=== PATIENT | male | born 1935 | race Caucasian/White ===

== ENCOUNTER 2019-03-01 05:06 | Inpatient (IN) ==
--- NOTE | 2019-03-01 05:34 | PROVIDER DOCUMENTATION ---
HPI-Respiratory General - General Chief Complaint: Shortness of Breath Stated Complaint: PNA/SOB/FEVER Time Seen by Provider: 03/01/19 05:08 Allergies/Adverse Reactions: Patient Allergies Allergy/AdvReac Type Severity Reaction Status Date / Time No Known Allergies Allergy Verified 01/25/18 01:05 Home Medications: Home Medication List Medication Instructions Recorded Confirmed Last Taken Type ASA/Salicylam/Acetaminoph/Caff 81 mg PO DAILY 01/25/18 01/25/18 Unknown History [Pain Relief Tablet] Amlodipine/Atorvastatin [Caduet 5 5 mg PO DAILY 01/25/18 01/25/18 Unknown Histo ry mg-10 mg Tablet] Carbidopa/Levodopa [Sinemet 25/100] 25 mg PO 4XDAY 01/25/18 01/25/18 Unknown History Levothyroxine Sodium [Synthroid] 25 mg PO DAILY 01/25/18 01/25/18 Unknown History Meloxicam [Mobic] 7.5 mg PO DAILY 01/25/18 01/25/18 Unknown History Metoprolol Succinate [Toprol Xl] 100 mg PO DAILY 01/25/18 01/25/18 Unknown History Rivastigmine [Exelon 13.3MG/24Hrs] 13.3 mg TP DAILY 01/25/18 01/25/18 Unknown History Acetaminophen [Tylenol] 650 mg PO Q4H PRN PRN tablet 01/28/18 Unknown Rx Azithromycin [Zithromax] 500 mg PO DAILY #6 tab 01/28/18 Unknown Rx CefDINIR [Omnicef] 300 mg PO DAILY #6 cap 01/28/18 Unknown Rx Desoximetasone 0.25% Cream 1 applicatn TOP BID #30 tube 01/28/18 Unknown Rx [Topicort 0.25% Cream] Irbesartan [Avapro] 150 mg PO DAILY #30 tab 01/28/18 Unknown Rx Lansoprazole Rap.d.r [Prevacid 30 mg PO DAILY tablet 01/28/18 Unknown Rx Solutab] Memantine [Namenda] 10 mg PO BID tablet 01/28/18 Unknown Rx Polyethylene Glycol 3350 [Miralax] 17 gm PO DAILY powder, packet 01/28/18 Unknown Rx Tamsulosin [Flomax] 0.4 mg PO QHS #30 cap 01/28/18 Unknown Rx - History of Present Illness-Resp Nature of Presenting Problem: 83 y/o WM c/o progressive SOB for the past 2-3 days with green productive cough and fever of 100.3. Pt sat on RA on arrival was 84%. Quality of Pain: reports: none Severity in ED: reports: mild Onset/Duration: reports: 3 days ago Timing: reports: still present Context: reports: other (recent hip surgery.) Exposure: reports: unknown cause Cough Quality/Degree: reports: mild, productive cough Episode Frequency: no prior episodes Current Respiratory Medication Therapy: Initiated see nurses note Modifying Factors: improves with: coughing, oxygen Associated Symptoms: reports: cough, shortness of breath Similar Symptoms Previously?: No Recently seen or treated by another doctor?: Yes (recently seen by PCP.) Review of Systems - Adult - REVIEW OF SYSTEMS - ADULT Constitutional: reports: see HPI, fever Eyes: reports: no symptoms reported, see HPI Ears, Nose, Mouth & Throat: reports: no symptoms reported, see HPI Cardiovascular: reports: no symptoms reported, see HPI Respiratory: reports: cough, shortness of breath Gastrointestinal: reports: no symptoms reported, see HPI Genitourinary: reports: no symptoms reported, see HPI Musculoskeletal: reports: no symptoms reported, see HPI Integumentary: reports: no symptoms reported, see HPI Neurological: reports: no symptoms reported, see HPI Psychiatric: reports: no symptoms reported, see HPI Endocrine: reports: no symptoms reported, see HPI Hematologic/Lymphatic: reports: no symptoms reported, see HPI Allergic/Immunologic: reports: no symptoms reported, see HPI All Other Systems: Reviewed and Negative Past History - Adult - PAST MEDICAL HISTORY-ADULT Review of Records: reports: Nursing Assessment Review, Medications Reviewed, Social history reviewed & non-contributory. Major Childhood Illnesses: reports: denies history Cardiovascular: reports: denies history Respiratory: reports: denies history Gastrointestinal: reports: denies history Obstetrical/Gynecological: reports: denies history Genitourinary: reports: denies history Musculoskeletal: reports: denies history Neurological: reports: denies history Endocrine/Immune: reports: denies history Other Conditions: reports: denies history - IMMUNIZATION STATUS Childhood Immunizations: See Nurse Assessment Flu Vaccine: See Nurse Assessment - FAMILY HISTORY Family History: reviewed, not pertinent Physical Exam-General - PHYSICAL EXAM-ADULT Initial Vital Signs Reviewed: Yes - CONSTITUTIONAL General Appearance: appears well, alert, no apparent distress - EYES Eyes: PERRL/EOMI - HEAD, EARS, NOSE, MOUTH & THROAT HENMT: normocephalic/atraumatic, moist mucous membranes - NECK Neck: non-tender, full range of motion, supple, normal inspection - RESPIRATORY Respiratory: chest non-tender, normal breath sounds, no pleuratic chest pain, no respiratory distress, no accessory muscle use, rhonchi (rt sided) - CARDIOVASCULAR Cardiovascular: normal peripheral pulses, regular rate, rhythm, no edema, no gallop, no JVD, no murmur - GASTROINTESTINAL (ABDOMEN) Abdominal Exam: normal bowel sounds, non tender, soft, no organomegaly, no pulsatile mass - LYMPHATIC Lymphatic: no adenopathy - MUSCULOSKELETAL Back Exam: normal inspection, no CVA tenderness, no vertebral tenderness Extremity: normal range of motion, non-tender, normal gait, normal inspection, no pedal edema, no calf tenderness, normal capillary refill - SKIN Integumentary: normal color, normal turgor - NEUROLOGIC Neurologic: business planning director II-XII nml as tested, grossly normal, no motor/sensory deficits - PSYCHIATRIC Psych/Mental Status: normal mood/affect, normal thought content, normal thought process, oriented x 3 - HEART Score HEART Score: History: Moderately Suspicious Progress - PLAN OF CARE/RESULTS Progress/Plan/Lab Results: Vital Signs - 8 hr 03/01/19 05:10 03/01/19 05:21 03/01/19 05:24 Temperature 99.2 F Pulse Rate 78 80 76 Respiratory Rate 19 26 H 40 H Blood Pressure 165/70 179/68 O2 Sat by Pulse Oximetry 84 L 95 03/01/19 05:30 03/01/19 05:40 03/01/19 05:50 Temperature Pulse Rate 75 75 75 Respiratory Rate 23 28 H 29 H Blood Pressure O2 Sat by Pulse Oximetry 93 L 93 L 94 L 03/01/19 06:00 03/01/19 06:02 03/01/19 06:10 Temperature Pulse Rate 74 74 83 Respiratory Rate 28 H 29 H 29 H Blood Pressure 171/69 O2 Sat by Pulse Oximetry 94 L 93 L 94 L 03/01/19 06:20 03/01/19 06:30 03/01/19 06:40 Temperature Pulse Rate 74 73 73 Respiratory Rate 25 H 27 H 29 H Blood Pressure O2 Sat by Pulse Oximetry 91 L 95 96 03/01/19 06:50 03/01/19 07:00 03/01/19 07:02 Temperature Pulse Rate 75 75 73 Respiratory Rate 25 H 25 H 28 H Blood Pressure 172/68 O2 Sat by Pulse Oximetry 94 L 96 96 03/01/19 07:10 03/01/19 07:20 03/01/19 07:30 Temperature Pulse Rate 73 75 74 Respiratory Rate 28 H 23 26 H Blood Pressure O2 Sat by Pulse Oximetry 96 95 95 03/01/19 07:40 03/01/19 07:50 Temperature Pulse Rate 76 74 Respiratory Rate 28 H 24 Blood Pressure O2 Sat by Pulse Oximetry 95 96 Laboratory Results - last 24 hr 03/01/19 03/01/19 03/01/19 05:26 05:26 05:26 WBC 15.76 H RBC 3.49 L Hgb 10.8 L Hct 33.1 L MCV 94.8 MCH 30.9 MCHC 32.6 L RDW Std Deviation 15.2 H Plt Count 478 H MPV 9.9 Immature Gran % (Auto) 0.5 Neut % (Auto) 78.8 H Lymph % (Auto) 8.6 L [place] % (Auto) 10.8 H Eos % (Auto) 1.0 Baso % (Auto) 0.3 Immature Gran # (Auto) 0.08 H Neut # (Auto) 12.42 H Lymph # (Auto) 1.35 [place] # (Auto) 1.70 H Eos # (Auto) 0.16 Baso # (Auto) 0.05 Specimen Type Sample Site pH pCO2 pO2 HCO3 Base Excess Oxyhemoglobin ABG O2 Sat (Calculated) ABG O2 Saturation ABG Carboxyhemoglobin ABG Methemoglobin Fredy Test A-a O2 Difference Total Hemoglobin Lactate Liter Flow Blood Gas Modality FiO2 % Sodium 142 Potassium 4.2 Chloride 105 Carbon Dioxide 23 L Anion Gap 14 BUN 27 H Creatinine 1.1 Estimated GFR/1.73 m2 > 60 BUN/Creatinine Ratio 25 Glucose 113 H Calculated Osmolality 289 Calcium 9.0 Total Bilirubin 0.64 AST 24 ALT 6 L Alkaline Phosphatase 117 Troponin T Lrx-V-Pxrxohsqzty Pept 4839 H Total Protein 5.8 L Albumin 3.6 Globulin 2.2 Albumin/Globulin Ratio 1.6 03/01/19 03/01/19 05:26 06:15 WBC RBC Hgb Hct MCV MCH MCHC RDW Std Deviation Plt Count MPV Immature Gran % (Auto) Neut % (Auto) Lymph % (Auto) [place] % (Auto) Eos % (Auto) Baso % (Auto) Immature Gran # (Auto) Neut # (Auto) Lymph # (Auto) [place] # (Auto) Eos # (Auto) Baso # (Auto) Specimen Type ARTERIAL Sample Site R RADIAL pH 7.51 H pCO2 29 L pO2 67 HCO3 25.3 Base Excess 0.6 Oxyhemoglobin 93.0 L ABG O2 Sat (Calculated) 13.0 L ABG O2 Saturation 96.8 ABG Carboxyhemoglobin 2.20 ABG Methemoglobin 1.7 H Fredy Test YES A-a O2 Difference 153.0 Total Hemoglobin 9.9 L Lactate 0.70 Liter Flow 4.0 Blood Gas Modality CANNULA FiO2 % 36.0 Sodium Potassium Chloride Carbon Dioxide Anion Gap BUN Creatinine Estimated GFR/1.73 m2 BUN/Creatinine Ratio Glucose Calculated Osmolality Calcium Total Bilirubin AST ALT Alkaline Phosphatase Troponin T 0.016 Fdg-U-Rvlvanfiabj Pept Total Protein Albumin Globulin Albumin/Globulin Ratio Orders Category Date Time Status Regular Diet Diet 03/01/19 07:47 Active cxr [CHEST-1 VIEW] [RAD] Stat Exams 03/01/19 05:08 Completed ABG [RESP] Routine Lab 03/01/19 06:15 Completed BLOOD CULTURE [BLDCUL] Stat Lab 03/01/19 05:24 Results CBC WITH ELECTRONIC DIFF [HEME] Stat Lab 03/01/19 05:26 Completed COMPREHENSIVE METABOLIC PANEL [CHEM] Stat Lab 03/01/19 05:26 Completed PRO B-NATRIURETIC PEPTIDE Stat Lab 03/01/19 05:26 Completed TROPONIN T Stat Lab 03/01/19 05:26 Completed Furosemide [Lasix] Med 03/01/19 08:33 Once 40 mg IV NOW ONE Levofloxacin 500 mg/D5w [Levaquin 500 mg/D5w] Med 03/01/19 06:35 Discontinued 500 mg in 100 ml IV NOW EKG [EKG] Stat Ther 03/01/19 05:10 Draft Result Diagrams: 03/01/19 05:26 03/01/19 05:26 - CONSULTS/PCP/HOSPITALIST Notification #1 *Consult/PCP/Hospitalist*: Fam Time Discussed: 08:34 Consult Disposition: Admit - CHANGE OF SHIFT REPORT (ED Provider) 1 Report Given and Care Transferred to:: Dr Flynn Time of Transfer: 07:00 Items Pending: Labs, XRAY Results Departure - Departure Date of Disposition Decision: 03/01/19 Time of Disposition Decision: 08:24 DIAGNOSIS: Basal pneumonia of both lungs, Healthcare-associated pneumonia Disposition: ADMITTED INPATIENT 09 Certified Medical Emergency: Emergent Condition: Fair Referrals and Follow-Ups: Roni Otto MD [Primary Care Provider] - - Critical Care Note This patient required my direct & personal management of CC.: No Attestation - Physician/ ANTHONY Attestation Patient care was provided by Advanced Practice Provider:: No The physician spent face to face time with patient:: Yes Advanced Practice Provider documentation review:: Supervising physician onsite and consulted in the evaluation and care of this patient. The physician did have a face to face encounter with the patient.
[2019-03-01 05:52] LABS: BASO# 0.05 X1000 (0.0-0.2); BASO% 0.3 % (0.0-0.8); EOS# 0.16 X1000 (0.0-0.7); HEMATOCRIT 33.1 % (42.0-52.0); HEMOGLOBIN 10.8 g/dL (14.0-18.0); IMM GRAN# 0.08 X1000 (0.0-0.04); IMM GRAN% 0.5 % (0.0-0.5); LYMPH# 1.35 X1000 (1.2-3.4); LYMPH% 8.6 % (20.5-51.1); MCH 30.9 PG (27-31); MCHC 32.6 g/dL (33-37); MCV 94.8 FL (81-99); MONO% 10.8 % (1.7-9.3); MPV 9.9 FL (7.4-10.4); NEUT# 12.42 X1000 (1.4-6.5); NEUT% 78.8 % (42.2-75.2); PLT 478 X1000 (130-400); RBC 3.49 XMIL (4.7-6.1); RDW 15.2 % (11.5-14.5); WBC 15.76 X1000 (4.8-10.8)
--- NOTE | 2019-03-01 06:23 | Diag Imaging Result Doc PS360 ---
CHEST-1 VIEW - 03/01/2019 INDICATION: sob COMPARISON: 02/10/2018 FINDINGS: There is cardiomegaly and pulmonary vascular congestion. There is heterogeneous bilateral infiltrates worst in the upper lobes. There are small pleural effusions. IMPRESSION: Cardiomegaly. Heterogeneous bilateral infiltrates compatible with pulmonary edema and/or pneumonia. Small pleural effusions. Electronically signed by Flo Alicea 03/01/2019 6:20 AM
[2019-03-01 06:25] LABS: ALLEN TEST YES; BE 0.6 mmoll (-3.0-3.0); BLOOD TYPE ARTERIAL; HCO3-(ACT) 25.3 mmoll (20.0-26.0); METHB 1.7 % (0.0-1.5); PCO2(98.6) 29 mmHg (35-45); PO2(98.6) 67 mmHg (60-100); SAMPLE BLOOD; SAO2 96.8 % (95.0-100.0); THB 9.9 g/dL (11.5-17.4); pH(98.6) 7.51 (7.35-7.45)
[2019-03-01 06:26] LABS: MODALITY CANNULA
[2019-03-01] MEDS ORDERED: LEVAQUIN 500 MG/D5W 500 MG/100 ML IVPB IV ONE (06:35)
[2019-03-01 06:44] LABS: AGAP 14; ALB/GLOB RATIO 1.6; ALBUMIN 3.6 g/dL (3.5-5.0); ALKALINE PHOSPHATASE 117 U/L (32-122); BUN 27 mg/dL (8-22); CHLORIDE 105 mmol/L (98-107); COSMO 289; CREATININE 1.1 mg/dL (0.7-1.2); ESTIMATED GFR > 60; GLUCOSE 113 mg/dL (70-104); GOT 24 U/L (10-34); GPT 6 U/L (10-44); POTASSIUM 4.2 mmol/L (3.5-5.1); SODIUM 142 mmol/L (136-145); TCO2 23 mmol/L (25-35); TOTAL BILIRUBIN 0.64 mg/dL (0.20-1.00); TOTAL PROTEIN 5.8 g/dL (6.3-8.3)
--- NOTE | 2019-03-01 07:04 | EKG Report ---
Test Performed on : 03/01/2019 05:19:14 AM Test Reason : SOB Blood Pressure : / mmHG Vent. Rate : 078 BPM Atrial Rate : 078 BPM P-R Int : 160 ms QRS Dur : 088 ms QT Int : 400 ms P-R-T Axes : 078 037 044 degrees QTc Int : 456 ms Sinus rhythm. with occasional premature ventricular complexes. Otherwise normal ECG When compared with ECG of 18-MAY-2011 01:38, premature ventricular complexes. are now present Unconfirmed Result
[2019-03-01] MEDS ORDERED: LASIX IV ONE (08:33)
[2019-03-01] MEDS ORDERED: TYLENOL PO PRN ×2 (13:48)
[2019-03-01] MEDS ORDERED: AVAPRO PO SCH (13:48)
[2019-03-01] MEDS: EXELON 13.3MG/24HRS TD SCH (14:45)
[2019-03-01] MEDS: NAMENDA PO SCH ×2 (14:45→20:30)
[2019-03-01] MEDS: PREVACID SOLUTAB PO SCH (14:45)
[2019-03-01] MEDS: SINEMET 25/100 PO SCH ×3 (14:45→20:30)
[2019-03-01] MEDS: NORVASC PO SCH (14:45)
[2019-03-01] MEDS: MIRALAX PO SCH (14:46)
[2019-03-01] MEDS: SYNTHROID PO SCH (14:46)
[2019-03-01] MEDS: MICARDIS PO SCH (14:46)
[2019-03-01] MEDS: ALBUTEROL NEB INH SCH ×2 (16:13→20:15)
[2019-03-01] MEDS: ZOLOFT PO SCH (17:15)
[2019-03-01] MEDS: ROBITUSSIN-DM PO SCH ×2 (17:15→20:32)
[2019-03-01] MEDS ORDERED: KLOR-CON PO ONE (18:33)
--- NOTE | 2019-03-01 19:17 | HISTORY AND PHYSICAL ---
CHIEF COMPLAINT: Fever and weakness. HISTORY OF PRESENT ILLNESS: The patient is an 83-year-old white male followed in my medical practice. He is 2 weeks status post right THR per Dr. Bravo, orthopedist in [place]. He had done fairly well until the last 3 days when he began having some weakness and had 1 minor fall 2 to 3 days ago. Repeat x-ray of his right hip was negative, and he suffered some minor abrasions to the dorsal aspects of both hands. Had another episode of weakness last night and was caught by his son-in-law before he fail. Had some low-grade fever last evening. MEDICATIONS PRIOR TO ADMISSION: Sinemet 25/100 one p.o. q.i.d., Synthroid 25 mcg p.o. daily, Toprol-XL 100 mg p.o. daily, Exelon patch 13.3 mg topically daily, Caduet 5/10 one p.o. daily, Mobic 15 mg p.o. daily, Namenda 10 mg p.o. b.i.d., Tylenol p.r.n., Prevacid SoluTab 30 mg p.o. daily, Eliquis 2.5 mg p.o. daily or this could be b.i.d. dosing, hydralazine 50 mg p.o. b.i.d., Micardis 80 mg p.o. daily, nitroglycerin sublingual p.r.n., Zoloft 50 mg p.o. daily, MiraLAX 17 g in 8 ounces of water daily p.r.n. constipation. ALLERGIES: NKDA. PAST MEDICAL HISTORY: 1. GERD with history of esophageal stricture, 2001. 2. Hypertension. 3. Coronary artery disease with history of GA July 2004. 4. Presbycusis, 2007. 5. Hypercholesterolemia. 6. Benign prostatic hypertrophy. 7. Venous insufficiency. 8. Parkinson's disease with Parkinson's dementia diagnosed in 2014, followed by Dr. Black. 9. Hypothyroidism, mild. PAST SURGICAL HISTORY: 1. Left inguinal hernia repair in 2010. 2. Right THR about [address] Bravo in [place]. IMMUNIZATIONS: Pneumovax 23 given 08/23/2001, April 2008 and June 2018. Prevnar 13 given August 2015. FAMILY HISTORY: Notable for father and mother lived into their 80s. No hypertension, stroke, cancer, diabetes in the family. GA in his twin brother at age 52. Alzheimer dementia in his brother. SOCIAL HISTORY: The patient lives in [place]. He is and has 3 children. Retired from [employer]. Quit smoking in 1989 but has a 35 pack-year history of smoking. Drinks about 2 drinks per day. REVIEW OF SYSTEMS: Negative except as above. PHYSICAL EXAMINATION: VITAL SIGNS: Temperature 99.2 degrees, pulse 78, respirations 19, blood pressure 165/70, O2 saturation on room air on presentation 84, weight 180, 5 foot 11 inches tall. GENERAL: Elderly white male with mild confusion at his baseline. SKIN: Mild abrasions to the dorsal aspect of the hands. HEENT: PERRL. EOMI. Sclerae: Mild injection bilaterally. OP: No redness, tongue in the midline. NECK: No LA, TMG, JVD, or bruits. CARDIOVASCULAR: RRR. No murmur. LUNGS: Some crackles at the lung bases and maybe diminished breath sounds at the lung bases as well. BACK: No CVA tenderness. ABDOMEN: Soft, nontender, nondistended. No mass or organomegaly. GENITOURINARY/RECTAL: Deferred. Mild bruising over the right posterior hip, purplish and yellow in color. Bandage in place over the right lateral anterior hip approach wound. EXTREMITIES: No calf tenderness cords or edema. NEUROLOGIC: Cranial nerves are intact. He moves all extremities well. Baseline mild to moderate confusion noted. LABORATORY DATA: Shows white count 15,000 with 78% neutrophils, lymphocytes 8.6, monocytes 10.8. ABG on 36% FiO2 shows pH 7.51, pCO2 29, pO2 67, HC03 25, O2 saturation 96.8. Sodium 142, potassium 4.2, chloride 105, CO2 23, BUN 27, creatinine 1.1, glucose 113, calcium 9.0, total bilirubin 0.64, AST 24, ALT 6, alkaline phosphatase 117. Troponin 0.016. ProBNP is elevated at 4839. Total protein 5.8, albumin 3.6. EKG shows sinus rhythm with PVCs. No acute ST changes. Chest x-ray shows cardiomegaly, heterogeneous bilateral infiltrates compatible with pulmonary edema and/or pneumonia. Small pleural effusions. ASSESSMENT: 1. Bilateral lung infiltrates, suspect both component of pneumonia bilaterally and congestive heart failure. 2. Two weeks status post right total hip replacement. 3. Parkinson disease with Parkinson dementia. 4. Hypertension. 5. Coronary artery disease. 6. Hypercholesterolemia. 7. Chronic venous insufficiency lower extremities. 8. Benign prostatic hypertrophy. 9. Gastroesophageal reflux disease with history of remote esophageal stricture. 10. Hypothyroidism, mild. PLAN: We will admit the patient, give him Levaquin IV. Blood cultures x2 have been obtained. Add albuterol nebulizer treatments. Continue oxygen supplementation. Given him Robitussin DM for pulmonary toilet. Continue Eliquis for prophylaxis of DVT, mild. Under past medical history put hypothyroidism. Continue his other home medications, Lasix 40 mg IV x1 dose given. We will monitor strict ins and outs and place condom catheter if required. Follow CBC and electrolytes closely and await the blood cultures. Keep him on regular diet. Monitor him on telemetry. Ask physical therapy to see the patient in consultation to help regarding his hip. cc: Roni Otto MD
[2019-03-01] MEDS: LIPITOR PO SCH (20:30)
[2019-03-01] MEDS: ELIQUIS PO SCH (20:30)
[2019-03-01] MEDS: FLOMAX PO SCH (20:30)
[2019-03-02] MEDS: ROBITUSSIN-DM PO SCH ×6 (00:50→20:04)
[2019-03-02] MEDS: ALBUTEROL NEB INH SCH ×4 (03:36→21:29)
--- NOTE | 2019-03-02 06:53 | Diag Imaging Result Doc PS360 ---
CHEST-PORTABLE - 03/02/2019 INDICATION: infiltrates COMPARISON: 03/01/2019 FINDINGS: There has been slight improvement in the left lower lobe infiltrate with better visualization of the left hemidiaphragm. Otherwise stable bilateral infiltrates with upper lobe predominance. Heart size remains slightly enlarged. IMPRESSION: Slight improvement in aeration of the left lung base. No new abnormality. Electronically signed by Flo Alicea 03/02/2019 6:51 AM
[2019-03-02 07:44] LABS: BASO# 0.03 X1000 (0.0-0.2); BASO% 0.2 % (0.0-0.8); EOS# 0.13 X1000 (0.0-0.7); HEMATOCRIT 27.9 % (42.0-52.0); HEMOGLOBIN 9.1 g/dL (14.0-18.0); IMM GRAN# 0.04 X1000 (0.0-0.04); IMM GRAN% 0.3 % (0.0-0.5); LYMPH% 10.4 % (20.5-51.1); MCH 30.7 PG (27-31); MCHC 32.6 g/dL (33-37); MCV 94.3 FL (81-99); MONO# 1.76 X1000 (0.11-0.59); MONO% 14.1 % (1.7-9.3); MPV 9.7 FL (7.4-10.4); NEUT# 9.25 X1000 (1.4-6.5); PLT 421 X1000 (130-400); RBC 2.96 XMIL (4.7-6.1); RDW 14.3 % (11.5-14.5); WBC 12.51 X1000 (4.8-10.8)
[2019-03-02 07:46] LABS: AGAP 10; BUN 23 mg/dL (8-22); CHLORIDE 104 mmol/L (98-107); COSMO 284; ESTIMATED GFR > 60; GLUCOSE 110 mg/dL (70-104); POTASSIUM 3.4 mmol/L (3.5-5.1); SODIUM 140 mmol/L (136-145); TCO2 26 mmol/L (25-35)
[2019-03-02] MEDS ORDERED: LASIX IV ONE (08:46)
[2019-03-02] MEDS ORDERED: KLOR-CON PO ONE (08:46)
--- NOTE | 2019-03-02 09:35 | EKG Report ---
Test Performed on : 03/02/2019 09:27:12 AM Test Reason : dysrythmia Blood Pressure : / mmHG Vent. Rate : 085 BPM Atrial Rate : 085 BPM P-R Int : 154 ms QRS Dur : 090 ms QT Int : 384 ms P-R-T Axes : 077 048 066 degrees QTc Int : 456 ms Sinus rhythm. with premature supraventricular complexes. Cannot rule out Anterior infarct , age undetermined Abnormal ECG When compared with ECG of 01-MAR-2019 05:19, (Unconfirmed) premature ventricular complexes. are no longer present premature supraventricular complexes. are now present Confirmed by Wyatt COREAS, Sarmad Butler ([id number]) on 03/03/2019 8:46:36 AM
[2019-03-02] MEDS: SYNTHROID PO SCH (10:12)
[2019-03-02] MEDS: LEVAQUIN 500 MG/D5W 500 MG/100 ML IVPB IV SCH (10:12)
[2019-03-02] MEDS: NORVASC PO SCH (10:12)
[2019-03-02] MEDS: ZOLOFT PO SCH (10:12)
[2019-03-02] MEDS: PREVACID SOLUTAB PO SCH (10:13)
[2019-03-02] MEDS: EXELON 13.3MG/24HRS TD SCH (10:13)
[2019-03-02] MEDS: ELIQUIS PO SCH ×2 (10:13→20:05)
[2019-03-02] MEDS: NAMENDA PO SCH ×2 (10:13→20:05)
[2019-03-02] MEDS: SINEMET 25/100 PO SCH ×4 (10:14→20:04)
[2019-03-02] MEDS: MIRALAX PO SCH (10:14)
[2019-03-02] MEDS: MICARDIS PO SCH (10:18)
--- NOTE | 2019-03-02 13:29 | PROGRESS NOTE ---
DATE: 03/02/2019 SUBJECTIVE: Patient is sitting up eating breakfast. He seems more alert and focused. He has no specific complaints. OBJECTIVE: Vital signs: Afebrile, pulse 76, respirations 18, blood pressure 154/66, O2 saturation on 4 L 98%. Cardiovascular: Regular rate and rhythm with occasional ectopy. Lungs: Crackles lung base, left greater than right with some crackles on up in the left lung as well. Abdomen: Soft, nontender, nondistended. Extremities: No significant lower extremity edema. Neurologic: Baseline mild confusion, improved from yesterday. LABORATORY DATA: White count down from 15 to 12.5, hemoglobin 9.1, platelets 421,000. Sodium 140, potassium 3.4, chloride 104, CO2 26, BUN 23, creatinine 1.0, calcium 8.0, blood sugar 110. IMAGING: Chest x-ray this morning reveals improvement in aeration of left lung basilar infiltrate, but still bilateral infiltrates are noted, especially in the upper lobe. Telemetry strips reveal sinus rhythm. ASSESSMENT: 1. Bilateral pneumonia. 2. Congestive heart failure. 3. Two weeks status post right total hip replacement. 4. Parkinson disease with Parkinson's dementia. 5. Hypertension. 6. Coronary artery disease. 7. Hypercholesterolemia. 8. Chronic venous insufficiency, lower extremities. 9. Benign prostatic hypertrophy. 10. Gastroesophageal reflux disease with remote history of esophageal stricture. 11. Mild hypothyroidism. 12. Mild hypokalemia. PLAN: Continue IV Levaquin. Continue nebulizer treatments, incentive spirometry. Strict intake and output as we can. He is wearing diapers at this point and declines a condom catheter. Blood cultures x2 remain negative. We will give an additional 40 mg IV Lasix dosage and replete potassium with 40 mEq of KCl now. Continue his home medications of Micardis, Zoloft, Exelon, MiraLAX, Namenda, Synthroid, Prevacid, Sinemet, Norvasc, Flomax, Lipitor. He is on prophylactic doses of Eliquis for DVT as he is within the 1st month after right THR and will continue that. Echocardiogram will be obtained and we will repeat EKG due to some ectopy. cc: Roni Otto MD
[2019-03-02] MEDS: LIPITOR PO SCH (20:05)
[2019-03-02] MEDS: FLOMAX PO SCH (20:05)
--- NOTE | 2019-03-02 23:19 | ECHO REPORT ---
ORDER DATE: 03/02/2019 MEASUREMENTS: Left ventricular internal diameter in diastole 4.8, left ventricular internal diameter in systole 2.6. Septal thickness 1.1. Posterior wall thickness 1.1. Aortic root 4.0. Left atrium 4.0. SUMMARY: 1. Technically difficult study due to limited acoustic window quality. 2. Aortic valve is without evidence of structural abnormality and opens adequately on 2- dimensional images. Peak gradient across the aortic valve is less than 10 mmHg. There is trace aortic regurgitation. Mild mitral annular calcification is demonstrated. Tricuspid valve is without evidence of structural abnormality, with trace tricuspid regurgitation. Pulmonic valve is not well demonstrated. The aortic root is normal in size. Pulmonic valve is not well demonstrated. The aortic root is borderline enlarged. 3. Normal left ventricular chamber size with upper-normal wall thickness demonstrated. Estimated left ventricular ejection fraction appears to be at least 70%. No regional wall motion abnormalities are evident. Left atrium is borderline enlarged. The right atrium and right ventricle are normal in size, with grossly preserved right ventricular systolic function. 4. No pericardial effusion. 5. Appearance of inferior vena cava suggests normal central venous pressure. cc: MD Roni Stuart MD
[2019-03-03] MEDS: ROBITUSSIN-DM PO SCH ×6 (01:28→22:17)
[2019-03-03] MEDS: ALBUTEROL NEB INH SCH ×4 (03:49→21:15)
[2019-03-03] MEDS ORDERED: KLOR-CON PO ONE (08:11)
[2019-03-03] MEDS ORDERED: LASIX PO ONE (08:11)
--- NOTE | 2019-03-03 08:43 | PROGRESS NOTE ---
DATE: 03/03/2019 SUBJECTIVE: Patient is sitting up eating breakfast. He remains pleasantly confused and is at his baseline in that regard. He wants to go home. No complaints. OBJECTIVE: Vital Signs: Afebrile. Pulse 81, blood pressure 148/55, O2 saturation on 4 L 98% to 99%. CV: RRR with frequent ectopy. Lungs: Fairly clear to auscultation. Abdomen: Nontender, nondistended. Extremities: No calf tenderness, cords or edema. Neurologic: Nonfocal. LABS/X-RAYS: No labs or chest x-ray done this morning. Echocardiogram reveals mild AR. EF 70%. No other abnormality. Normal wall motion. Telemetry strips show sinus rhythm, occasional PVCs. ASSESSMENT: 1. Bilateral pneumonia, improving. 2. Congestive heart failure, diastolic in nature, improved, acute. 3. Two weeks status post right total hip replacement. 4. Parkinson disease with Parkinson dementia, moderate. 5. Hypertension. 6. Coronary artery disease. 7. Hypercholesterolemia. 8. Chronic venous insufficiency, lower extremities. 9. Benign prostatic hypertrophy. 10. Gastroesophageal reflux disease with a history of remote esophageal stricture. 11. Mild hypothyroidism. 12. Mild hypokalemia. PLAN: Continue IV Levaquin, albuterol nebulizer treatments, incentive spirometry. Give him Lasix 40 mg p.o. today with potassium, and continue physical therapy. Repeat chest x-ray and labs to include CBC, proBNP, BMP, and will likely be able to discharge home tomorrow with home healthcare and home PT at the family request. They decline rehab evaluation. cc: Roni Otto MD
[2019-03-03] MEDS: NORVASC PO SCH (09:04)
[2019-03-03] MEDS: EXELON 13.3MG/24HRS TD SCH (09:04)
[2019-03-03] MEDS: ZOLOFT PO SCH (09:04)
[2019-03-03] MEDS: TOPROL XL PO SCH (09:05)
[2019-03-03] MEDS: PREVACID SOLUTAB PO SCH (09:05)
[2019-03-03] MEDS: SINEMET 25/100 PO SCH ×4 (09:05→22:16)
[2019-03-03] MEDS: ELIQUIS PO SCH ×2 (09:06→22:16)
[2019-03-03] MEDS: MICARDIS PO SCH (09:06)
[2019-03-03] MEDS: LEVAQUIN 500 MG/D5W 500 MG/100 ML IVPB IV SCH (09:06)
[2019-03-03] MEDS: NAMENDA PO SCH ×2 (09:06→22:16)
[2019-03-03] MEDS: SYNTHROID PO SCH (09:06)
[2019-03-03] MEDS: MIRALAX PO SCH (09:07)
[2019-03-03 09:47] LABS: BASO# 0.03 X1000 (0.0-0.2); BASO% 0.3 % (0.0-0.8); EOS# 0.22 X1000 (0.0-0.7); EOS% 2.1 % (0.0-10.0); HEMATOCRIT 29.9 % (42.0-52.0); HEMOGLOBIN 9.6 g/dL (14.0-18.0); IMM GRAN# 0.05 X1000 (0.0-0.04); IMM GRAN% 0.5 % (0.0-0.5); LYMPH% 20.4 % (20.5-51.1); MCH 30.8 PG (27-31); MCHC 32.1 g/dL (33-37); MCV 95.8 FL (81-99); MONO# 1.15 X1000 (0.11-0.59); MONO% 11.2 % (1.7-9.3); MPV 9.9 FL (7.4-10.4); NEUT# 6.75 X1000 (1.4-6.5); NEUT% 65.5 % (42.2-75.2); PLT 474 X1000 (130-400); RBC 3.12 XMIL (4.7-6.1); RDW 14.4 % (11.5-14.5)
--- NOTE | 2019-03-03 10:10 | Diag Imaging Result Doc PS360 ---
EXAM: CHEST-2 VIEWS 03/03/2019 HISTORY: f/u pna/chf TECHNIQUE: Two views the chest COMMENT: There is pleural thickening and coarse interstitial opacity in both lung bases, more so on the left than the right. The alveolar opacities present previously in the upper lobes on 03/02/2019 have largely resolved. The basilar interstitial opacities were also present on 02/10/2018. IMPRESSION: Given the rather rapid resolution of the opacities in the upper lung zones, this was probably due to pulmonary edema. This is superimposed on pre-existing pulmonary fibrosis. Electronically signed by Олег Singh 03/03/2019 10:08 AM
[2019-03-03 10:31] LABS: CALCIUM 8.6 mg/dL (8.8-10.2); CREATININE 1.3 mg/dL (0.7-1.2); POTASSIUM 3.7 mmol/L (3.5-5.1)
[2019-03-03] MEDS: LIPITOR PO SCH (22:16)
[2019-03-03] MEDS: FLOMAX PO SCH (22:16)
[2019-03-04] MEDS: ROBITUSSIN-DM PO SCH ×3 (02:19→09:53)
[2019-03-04] MEDS: ALBUTEROL NEB INH SCH ×2 (05:58→09:32)
[2019-03-04 08:14] VITALS: BP 138/60
[2019-03-04] MEDS: MIRALAX PO SCH (08:30)
[2019-03-04] MEDS: PREVACID SOLUTAB PO SCH (08:30)
[2019-03-04] MEDS: NAMENDA PO SCH (08:31)
[2019-03-04] MEDS: ELIQUIS PO SCH (08:31)
[2019-03-04] MEDS: TOPROL XL PO SCH (08:31)
[2019-03-04] MEDS: SINEMET 25/100 PO SCH (08:31)
[2019-03-04] MEDS: NORVASC PO SCH (08:31)
[2019-03-04] MEDS: ZOLOFT PO SCH (08:31)
[2019-03-04] MEDS: SYNTHROID PO SCH (08:31)
[2019-03-04] MEDS: EXELON 13.3MG/24HRS TD SCH (08:31)
[2019-03-04] MEDS: MICARDIS PO SCH (08:32)
[2019-03-04] MEDS: LEVAQUIN 500 MG/D5W 500 MG/100 ML IVPB IV SCH (09:51)
--- NOTE | 2019-03-04 10:01 | DISCHARGE SUMMARY ---
DATE: 03/04/2019 SUBJECTIVE: The patient is desiring to go home. He is feeling better. He is sitting up eating breakfast. OBJECTIVE: Vital Signs: Afebrile. Pulse 70. Respirations 16. Blood pressure 178/60. O2 saturations 96% to 98% on 2 L of oxygen; it went down into the 70s on 1 L yesterday. CV: RRR with rare ectopy. Lungs: Coarse breath sounds at the bases. Cannot rule out a rare crackle. Good air movement. Abdomen: Nontender and nondistended. Last bowel movement was yesterday. Extremities: No calf tenderness, cords, or edema. Neuro: Nonfocal. Cranial nerves are intact. Mild baseline dementia/confusion associated with his Parkinson's dementia. Sodium 142, potassium 3.7, chloride 104, CO2 26, BUN 30, creatinine 1.3, and glucose 131. ProBNP 851. White count 10, hemoglobin 9.6, and platelets 474. Chest x-ray repeated yesterday showed rather rapid resolution of the opacities in the upper lung zones likely related to pulmonary edema superimposed on pre-existing pulmonary fibrosis as read per Dr. Singh. ASSESSMENT: 1. Bilateral pneumonia, improving. 2. Acute diastolic congestive heart failure, improved. 3. Two and a half weeks status post right total hip replacement, improving with physical therapy. 4. Parkinson's disease with Parkinson's dementia, moderate. 5. Hypertension. 6. Coronary artery disease. 7. Hypercholesterolemia. 8. Chronic venous insufficiency of the lower extremities. 9. Benign prostatic hypertrophy. 10.Gastroesophageal reflux disease. 11.History of remote esophageal stricture with dilation. 12.Mild hypothyroidism. 13.Hypokalemia, resolved with repletion. PLAN: We will discharge the patient home on low dose O2 per nasal cannula. Continue Lasix but decrease the dose to 20 mg every a.m. Continue Levaquin for 8 days, 500 mg p.o. daily. Resume other home medications. He will follow up in my office in 6 days with repeat labs and a chest x- ray at that time. The family knows to bring him back here to the [facility] should he worsen in any way. Home physical therapy and PT will be resumed as well. cc: Roni Otto MD
--- NOTE | 2019-03-04 12:39 | PROGRESS NOTE ---
DATE: 03/04/2019 The patient is requiring home oxygen at 2 L/minute per nasal cannula. He qualifies as his O2 saturation within the past 24 hours on 1 L of oxygen was 85% as documented by the nurse taking care of him. The patient suffers from chronic medical condition of coronary artery disease with history of NH in 2004. Pneumonia bilateral is resolved, and is requiring additional treatment of Levaquin at home to complete 8 more days. CHF, acute diastolic is improved. He also is noted on chest x-ray to have chronic medical condition of pre-existing pulmonary fibrosis which is a chronic condition as noted by Dr. Singh on chest x-ray done 03/03/2019. The patient requires and qualifies for home oxygen at 2 L/minute per nasal cannula. cc: Roni Otto MD
== END 2019-03-04 14:00 | disposition home health service (06) | DRG 193 ==
LOC: ED 05:06 → EDIPHOLD 08:59 → 3N 13:16
PROVIDERS: ADMIT Family Medicine; ATTEND Family Medicine
CPT/HCPCS: 36415; 71010; 71020; 71045; 71046; 73502; 80048; 80053; 82805; 83880; 84484; 85025; 85027; 87040; 93005; 93010; 93306; 94640; 94761; 96365; 96375; 97116; 97162; 99285; A9270; J1940; J1956

== ENCOUNTER 2019-04-12 10:17 | Inpatient (IN) ==
--- NOTE | 2019-04-12 11:00 | Diag Imaging Result Doc PS360 ---
CHEST-2 VIEWS - 04/12/2019 INDICATION: FEVER COUGH COMPARISON: 03/11/2019 FINDINGS: Stable coarse peripheral interstitial opacities most consistent with pulmonary fibrosis. These are overall worsened since 03/03/2019. No new infiltrates or edema. Heart size is normal. No pneumothorax or pleural effusion. IMPRESSION: Worsening pulmonary fibrosis. Chest CT is recommended. Intravenous contrast is optional. Electronically signed by Flo Alicea 04/12/2019 10:58 AM
[2019-04-12 11:07] LABS: BASO# 0.03 X1000 (0.0-0.2); BASO% 0.2 % (0.0-0.8); EOS# 0.04 X1000 (0.0-0.7); EOS% 0.3 % (0.0-10.0); HEMATOCRIT 38.3 % (42.0-52.0); HEMOGLOBIN 12.7 g/dL (14.0-18.0); IMM GRAN# 0.04 X1000 (0.0-0.04); IMM GRAN% 0.3 % (0.0-0.5); LYMPH# 2.28 X1000 (1.2-3.4); LYMPH% 16.7 % (20.5-51.1); MCH 30.5 PG (27-31); MCHC 33.2 g/dL (33-37); MCV 92.1 FL (81-99); MONO# 1.39 X1000 (0.11-0.59); MONO% 10.2 % (1.7-9.3); MPV 10.6 FL (7.4-10.4); NEUT# 9.88 X1000 (1.4-6.5); NEUT% 72.3 % (42.2-75.2); PLT 262 X1000 (130-400); RBC 4.16 XMIL (4.7-6.1); RDW 13.8 % (11.5-14.5); WBC 13.66 X1000 (4.8-10.8)
[2019-04-12 11:22] LABS: BANDS 2 % (0-1); CALCIUM 9.2 mg/dL (8.8-10.2); CREATININE 1.2 mg/dL (0.7-1.2); EOS 1 % (1-10); LYMPHS 17 % (21-51); MONO 8 % (1-9); POTASSIUM 4.1 mmol/L (3.5-5.1); SEGS 72 % (42-75)
[2019-04-12] MEDS ORDERED: ZOFRAN IV PRN (13:38)
[2019-04-12] MEDS ORDERED: SALINE LOCK IV FLUID XX ONE (13:38)
[2019-04-12] MEDS: TYLENOL PO PRN (14:57)
[2019-04-12 15:30] LABS: URINE SOURCE CATH
[2019-04-12 15:37] LABS: BILIRUBIN URINE NEGATIVE (NEGATIVE); BLOOD URINE SMALL (NEGATIVE); COLOR YELLOW; GLUCOSE URINE NEGATIVE (NEGATIVE); KETONE URINE NEGATIVE (NEGATIVE); LEUKOCYTES URINE NEGATIVE (NEGATIVE); NITRITE URINE NEGATIVE (NEGATIVE); PROTEIN URINE 70 mg/dL (NEGATIVE); SP GRAVITY URINE 1.013; TURBIDITY URINE CLEAR (CLEAR); UR EPITHELIAL CELLS <10 /HPF (<10); URINE BACTERIA NEGATIVE /HPF; URINE WBC <10 /HPF (<10); UROBILINOGEN URINE NORMAL (NORMAL)
[2019-04-12] MEDS: DUONEB (A & A) INH SCH ×3 (16:50→23:01)
[2019-04-12] MEDS ORDERED: TYLENOL ARTHRITIS PO PRN (17:27)
[2019-04-12] MEDS ORDERED: NITROGLYCERIN SL PRN (17:27)
[2019-04-12] MEDS ORDERED: VANCOMYCIN IV PER PHARMACY MISC SCH (17:30)
[2019-04-12] MEDS: LEVAQUIN 500 MG/D5W 500 MG/100 ML IVPB IV SCH (18:44)
[2019-04-12] MEDS ORDERED: VANCOMYCIN 2 GM in NS 500 ML IV ONE (19:00)
[2019-04-12] MEDS: NAMENDA PO SCH (21:53)
[2019-04-12] MEDS: SINEMET 25/100 PO SCH (21:54)
[2019-04-12] MEDS: TOPROL XL PO SCH (21:54)
[2019-04-13] MEDS: TYLENOL PO PRN (00:17)
[2019-04-13] MEDS: HALDOL IV PRN (00:18)
[2019-04-13] MEDS: DUONEB (A & A) INH SCH ×6 (03:39→23:49)
--- NOTE | 2019-04-13 07:44 | HISTORY AND PHYSICAL ---
CHIEF COMPLAINT: Fever, cough, and weakness. HISTORY OF PRESENT ILLNESS: The patient is an 83-year-old white male, followed in my medical practice. He suffers from Parkinson's disease and Parkinson's dementia. He had seen his neurologist, Dr. Black, yesterday, and was doing fairly well, had a good day overall, but last night developed a T-max of 99 degrees, and has had some mild cough that he reported to his . He also had some confusion, and could not get up out of bed, and his was unable to handle him at home. MEDICATIONS: Medications prior to admission include Prevacid 40 mg daily, Synthroid 25 mcg daily, Sinemet 25/100 q.i.d., Zoloft 75 mg nightly, Namenda 10 mg b.i.d., Mobic 15 mg daily, iron slow- release 1 p.o. daily, Tylenol Arthritis 650 mg q.i.d. p.r.n. pain, Lasix 20 mg every other day, Caduet 5/10 one p.o. daily, aspirin 81 mg daily, Toprol-XL 50 mg daily, Exelon patch 13 mg to skin daily. ALLERGIES: NKDA. PAST MEDICAL HISTORY: 1. Parkinson's disease with Parkinson's dementia. 2. History of diastolic CHF. 3. Hypertension. 4. Coronary artery disease. 5. Hypercholesterolemia. 6. Chronic venous insufficiency of lower extremities. 7. BPH. 8. GERD. 9. Remote history of esophageal stricture with dilation. 10. Mild hypothyroidism. 11. History of pneumonia in early March. PAST SURGICAL HISTORY: 1. Left inguinal hernia repair in 2010. 2. Right THR in 01/2019. IMMUNIZATIONS: Pneumovax 23 given 08/23/2001, 04/2008, and 06/2018; Prevnar 13 given 07/2015; flu vaccine given yearly, last one in 2017; last tetanus shot on 01/11/2010; colonoscopies given in 1997 and 05/2012. FAMILY HISTORY: Notable for MS in his twin brother at age 52. Father and mother lived into her 80s. No cancer, stroke, diabetes, or hypertension in the family. SOCIAL HISTORY: The patient lives in [place]. He is . He has 3 children. Retired from [employer]. Has been a drinker of about 2 drinks per day in the past, not frequently lately. Quit smoking in 1989, but has a [id number] history of smoking. REVIEW OF SYSTEMS: Negative, except as above. PHYSICAL EXAMINATION: GENERAL: Elderly, white male, [id number] confused today, worse than normal. SKIN: No active rashes or skin breakdown. HEENT: PERRL. EOMI. Sclerae clear. TMs occluded with cerumen. OP. Mild redness. No exudate. NECK: No LA. No meningeal signs. No TMG. No bruits. No JVD. CARDIOVASCULAR: RRR without distinct murmur. LUNGS: Distant breath sounds. Difficult exam due to patient cooperation. He is not able to follow commands, and not able to take great deep breaths for me, but otherwise CTA on shallow respirations. BACK: No CVA tenderness. ABDOMEN: Nontender, nondistended. No mass or organomegaly. EXTREMITIES: Trace lower extremity edema. GENITOURINARY/RECTAL: Deferred. NEUROLOGIC: The patient is alert and oriented x0 today. He has confusion much worse than normal. Follows commands minimally. IMAGING AND LABORATORY DATA: Labs show sodium 140, potassium 4.1, chloride 101, CO2 of 29, glucose 97, BUN 27, creatinine 1.2. White count elevated at 13.6, hemoglobin 12.7, hematocrit 38.3, platelets 262,000, neutrophils 72, lymphocytes 16. Blood cultures x2 are obtained and are pending. Unable to get him up and get a urinalysis due to weakness currently. Chest x-ray reveals interstitial peripheral opacities consistent with pulmonary fibrosis, worsened since 03/03/2019. No new infiltrates or edema. Heart size is normal. No pneumothorax or pleural effusions. ASSESSMENT: 1. Mental status change. 2. Fever with leukocytosis. 3. Abnormal chest x-ray with pulmonary fibrotic changes versus infiltrates. 4. Parkinson's disease with Parkinson's dementia, followed by Dr. Black. 5. Hypertension. 6. Hypercholesterolemia. 7. Chronic venous insufficiency. 8. Coronary artery disease. 9. Gastroesophageal reflux disease with history of esophageal stricture, remote. 10. Benign prostatic hypertrophy. 11. Presbycusis with hearing aids. PLAN: The patient will be admitted. Will follow the blood cultures. Check urinalysis with catheter placement. Will give him Haldol as needed for agitation. Give him a GI soft diet. Will check CT thorax as recommended by radiologist, and will cover him with antibiotics in the form of Levaquin and vancomycin. Continue his home medications. cc: Roni Otto MD
[2019-04-13] MEDS: SYNTHROID PO SCH (08:08)
[2019-04-13] MEDS: PREVACID SOLUTAB PO SCH (08:08)
[2019-04-13] MEDS: ZOLOFT PO SCH (09:30)
--- NOTE | 2019-04-13 09:30 | Diag Imaging Result Doc PS360 ---
EXAM: CT THORAX W/O CONTRAST 04/13/2019 HISTORY: fever,fibrosis TECHNIQUE: This exam was performed using automated exposure control, adjustment of mA or kV according to patient size, and/or use of iterative reconstruction technique. COMMENT: There are no previous studies available for comparison. Apical pleural fibrosis with some calcification bilaterally. There is subpleural in interstitial opacity bilaterally in the upper and lower lobes with some honeycombing in the lower lobes posteriorly particularly the left lower lobe. This is consistent with a usual interstitial pneumonia pattern. There is a small amount of pleural fluid bilaterally. There is right paratracheal adenopathy and some calcified nodes are seen in the subcarina and right hilum. There is extensive coronary calcification. There are granulomata in the spleen. There is a small pericardial effusion. There are degenerative changes in the thoracic spine. IMPRESSION: Interstitial fibrosis. The possibility of superimposed pulmonary edema or pneumonia particularly in view of the bilateral small pleural effusions cannot be excluded. Electronically signed by Олег Singh 04/13/2019 9:27 AM
[2019-04-13] MEDS: NAMENDA PO SCH ×2 (09:31→21:42)
[2019-04-13] MEDS: NORVASC PO SCH (09:31)
[2019-04-13] MEDS: SINEMET 25/100 PO SCH ×4 (09:31→21:42)
[2019-04-13] MEDS: MOBIC PO SCH (09:31)
[2019-04-13] MEDS: ASPIRIN PO SCH (09:31)
[2019-04-13] MEDS: LIPITOR PO SCH (09:31)
[2019-04-13] MEDS: EXELON 13.3MG/24HRS TD SCH (09:32)
[2019-04-13] MEDS: LASIX IV SCH (11:24)
[2019-04-13] MEDS: LEVAQUIN 500 MG/D5W 500 MG/100 ML IVPB IV SCH (17:03)
[2019-04-13] MEDS: TOPROL XL PO SCH (21:42)
[2019-04-13] MEDS: LOVENOX SUBQ SCH (21:42)
[2019-04-13] MEDS: VANCOMYCIN 1.3 GM in NS 250 ML IV SCH (22:49)
[2019-04-14] MEDS: DUONEB (A & A) INH SCH ×5 (03:52→19:10)
[2019-04-14] MEDS: SYNTHROID PO SCH (06:10)
[2019-04-14] MEDS: PREVACID SOLUTAB PO SCH (06:10)
[2019-04-14 07:00] LABS: AGAP 12; BUN 20 mg/dL (8-22); CALCIUM 8.9 mg/dL (8.8-10.2); CHLORIDE 103 mmol/L (98-107); COSMO 286; CREATININE 1.1 mg/dL (0.7-1.2); ESTIMATED GFR > 60; GLUCOSE 100 mg/dL (70-104); POTASSIUM 3.5 mmol/L (3.5-5.1); SODIUM 142 mmol/L (136-145); TCO2 27 mmol/L (25-35)
[2019-04-14 07:07] LABS: BASO# 0.04 X1000 (0.0-0.2); BASO% 0.3 % (0.0-0.8); EOS% 1.7 % (0.0-10.0); HEMATOCRIT 34.8 % (42.0-52.0); HEMOGLOBIN 11.6 g/dL (14.0-18.0); IMM GRAN# 0.04 X1000 (0.0-0.04); IMM GRAN% 0.3 % (0.0-0.5); LYMPH# 1.79 X1000 (1.2-3.4); LYMPH% 14.8 % (20.5-51.1); MCH 30.5 PG (27-31); MCHC 33.3 g/dL (33-37); MCV 91.6 FL (81-99); MONO# 1.36 X1000 (0.11-0.59); MONO% 11.3 % (1.7-9.3); MPV 10.5 FL (7.4-10.4); NEUT# 8.63 X1000 (1.4-6.5); NEUT% 71.6 % (42.2-75.2); PLT 235 X1000 (130-400); RDW 13.8 % (11.5-14.5); WBC 12.06 X1000 (4.8-10.8)
[2019-04-14] MEDS: HALDOL IV PRN ×2 (07:30→15:24)
[2019-04-14 07:56] LABS: EOS 2 % (1-10); LYMPHS 14 % (21-51); MONO 4 % (1-9); SEGS 80 % (42-75)
[2019-04-14] MEDS: NAMENDA PO SCH ×2 (08:13→20:24)
[2019-04-14] MEDS: NORVASC PO SCH (08:13)
[2019-04-14] MEDS: LIPITOR PO SCH (08:13)
[2019-04-14] MEDS: ASPIRIN PO SCH (08:13)
[2019-04-14] MEDS: LASIX IV SCH (08:14)
[2019-04-14] MEDS: ZOLOFT PO SCH (08:14)
[2019-04-14] MEDS: SINEMET 25/100 PO SCH ×4 (08:14→20:24)
[2019-04-14] MEDS: MOBIC PO SCH (08:14)
[2019-04-14] MEDS: EXELON 13.3MG/24HRS TD SCH (08:15)
--- NOTE | 2019-04-14 08:42 | PROGRESS NOTE ---
DATE: 04/14/2019 SUBJECTIVE: The patient is alert. He is with his sitter. She says he stayed up all night and did not sleep. He remains quite confused. OBJECTIVE: T-max 99.2 degrees. Vital signs stable. Cardiovascular: RRR. Lungs: Distant breath sounds. Cannot rule out rare crackle bilaterally. Abdomen: Soft, nontender, nondistended. Extremities: No calf tenderness, cords, or edema. Neurologic: Nonfocal. Cranial nerves are intact. He moves all extremities well. He remains moderately to severely confused. Lab data shows sodium 142, potassium 3.5, chloride 103, CO2 27, BUN 20, creatinine 1.1, glucose 100, calcium 8.9. White count 12, hemoglobin 11.6, platelets 235,000, 72% neutrophils. Blood cultures remain negative x2. ASSESSMENT: 1. Bilateral lung infiltrates. 2. Mental status change/delirium. 3. Parkinson's disease with at least moderate Parkinson's dementia. 4. Hypertension. 5. Hypercholesterolemia. 6. Chronic venous insufficiency. 7. Coronary artery disease. 8. Gastroesophageal reflux disease. 9. Benign prostatic hypertrophy. 10. Presbycusis with hearing aids. PLAN: We will repeat chest x-ray and labs in the morning. Continue Levaquin, low-dose Lasix, DuoNebs. We will continue to work with the patient and family regarding placement in the long run. We have added Lovenox for prevention of DVT. We will get physical therapy to see the patient today to start working with him in regard to his strengthening and ambulation. We will try Seroquel at night due to insomnia at 50 mg nightly. cc: Roni Otto MD
--- NOTE | 2019-04-14 08:56 | PROGRESS NOTE ---
DATE: 04/13/2019 SUBJECTIVE: The patient was seen twice on the date of 04/13/2019. He was going to CT scan so I briefly saw him and talked with his sitter. He had had some confusion overnight and took 1 dose of Haldol, and that seemed to help some. I came back and saw him in the afternoon and talked with his daughter. The patient had seemed to clear some with his confusion during the afternoon and was somewhat better. OBJECTIVE: The patient generally at baseline in the afternoon with moderate confusion, but alert and oriented x2.CV: RRR. Lungs: Minimal crackles bilaterally. Extremities: No edema. Abdomen: Soft and nontender. Neurologic: Cranial nerves 2-12 are intact. He moves all extremities well. Blood cultures remain negative. LABORATORY DATA: [place] [address] with a left shift mild. Urinalysis was negative, and no culture was needed. A CT scan of the chest revealed interstitial fibrosis with possibility of superimposed pulmonary edema or pneumonia particularly in view of bilateral small pleural effusions. ASSESSMENT: 1. Delirium. 2. Parkinson disease with moderate Parkinson's dementia followed by Dr. Black. 3. Fever with leukocytosis and lung infiltrates consistent with pneumonia bilaterally. 4. Hypertension. 5. Hypercholesterolemia. 6. Chronic venous insufficiency lower extremities. 7. Coronary artery disease. 8. Gastroesophageal reflux disease. 9. Benign prostatic hypertrophy. 10. Presbycusis with hearing aids. PLAN: We will add Lovenox for prevention of DVT. I spoke with his daughter in detail about possible retirement placement versus home 24 hour care. They are going to contemplate that. For now, we will continue the Haldol. He inquires about Seroquel, and may add that if he has ongoing difficulty with sleeping at night. Otherwise, we will continue the antibiotic of Levaquin. We will give low-dose Lasix 20 mg IV daily. Continue his Sinemet, aspirin, Norvasc, Toprol-XL, Prevacid, Synthroid, Mobic, Namenda, Zoloft, and Exelon. As stated, we will continue the DuoNeb's, Levaquin, and low-dose IV Lasix. We will consult [employer] Professor regarding possible rehab placement and/or permanent retirement placement versus brief rehab, and then back home with 24 hour home care. cc: Roni Otto MD
[2019-04-14] MEDS: LEVAQUIN 500 MG/D5W 500 MG/100 ML IVPB IV SCH (16:38)
[2019-04-14] MEDS: TOPROL XL PO SCH (20:24)
[2019-04-14] MEDS: SEROQUEL PO SCH (20:24)
[2019-04-14] MEDS: LOVENOX SUBQ SCH (20:24)
[2019-04-14] MEDS: VANCOMYCIN 1.3 GM in NS 250 ML IV SCH (21:04)
[2019-04-15] MEDS: DUONEB (A & A) INH SCH ×7 (03:10→23:14)
[2019-04-15] MEDS: PREVACID SOLUTAB PO SCH (06:36)
[2019-04-15] MEDS: SYNTHROID PO SCH (06:36)
[2019-04-15 06:48] LABS: AGAP 10; BUN 19 mg/dL (8-22); CALCIUM 9.1 mg/dL (8.8-10.2); CHLORIDE 103 mmol/L (98-107); COSMO 287; CREATININE 1.1 mg/dL (0.7-1.2); ESTIMATED GFR > 60; GLUCOSE 93 mg/dL (70-104); POTASSIUM 3.4 mmol/L (3.5-5.1); SODIUM 143 mmol/L (136-145); TCO2 30 mmol/L (25-35)
[2019-04-15 06:50] LABS: BASO# 0.05 X1000 (0.0-0.2); BASO% 0.6 % (0.0-0.8); EOS# 0.33 X1000 (0.0-0.7); EOS% 4.1 % (0.0-10.0); HEMATOCRIT 36.8 % (42.0-52.0); IMM GRAN# 0.02 X1000 (0.0-0.04); IMM GRAN% 0.2 % (0.0-0.5); LYMPH# 2.01 X1000 (1.2-3.4); LYMPH% 24.8 % (20.5-51.1); MCHC 32.6 g/dL (33-37); MONO# 0.98 X1000 (0.11-0.59); MONO% 12.1 % (1.7-9.3); MPV 10.3 FL (7.4-10.4); NEUT# 4.71 X1000 (1.4-6.5); NEUT% 58.2 % (42.2-75.2); PLT 254 X1000 (130-400); RDW 13.7 % (11.5-14.5)
[2019-04-15 07:16] LABS: EOS 3 % (1-10); LYMPHS 24 % (21-51); MONO 13 % (1-9); SEGS 60 % (42-75)
--- NOTE | 2019-04-15 07:23 | Diag Imaging Result Doc PS360 ---
EXAM: CHEST-2 VIEWS HISTORY: infiltrates TECHNIQUE: Chest two views COMPARISON: 04/12/2019 FINDINGS: There are mild increased interstitial markings in the lower left lung and in both upper lungs. Heart is not enlarged. No pleural effusions. No vascular distention. IMPRESSION: Stable chest. Electronically signed by Grabiel Orozco 04/15/2019 7:21 AM
[2019-04-15] MEDS: EXELON 13.3MG/24HRS TD SCH (08:44)
[2019-04-15] MEDS: ZOLOFT PO SCH (08:45)
[2019-04-15] MEDS: ASPIRIN PO SCH (08:46)
[2019-04-15] MEDS: SINEMET 25/100 PO SCH ×4 (08:46→21:03)
[2019-04-15] MEDS: LIPITOR PO SCH (08:46)
[2019-04-15] MEDS: NAMENDA PO SCH ×2 (08:46→21:03)
[2019-04-15] MEDS: NORVASC PO SCH (08:46)
[2019-04-15] MEDS: APRESOLINE PO SCH ×3 (09:10→17:00)
[2019-04-15] MEDS: LASIX PO SCH (09:10)
[2019-04-15] MEDS: MOBIC PO SCH (09:10)
--- NOTE | 2019-04-15 09:15 | PROGRESS NOTE ---
DATE: 04/15/2029 SUBJECTIVE: Patient is eating his breakfast very well this morning. He is feeling better. He remains moderately confused. He is with his sitter this morning. Sitter says he slept well all night, and woke up just after 7:00 this morning. It appears the Seroquel certainly helped him rest last evening. OBJECTIVE: Afebrile. Pulse 58, respirations 16, and blood pressure 174/57. He is eating 50 to 100 percent of his meals. Chest x-ray this morning reveals no change. Still had some nonspecific infiltrates in the left lower lung and both upper lobes. LABORATORY DATA: Lab data shows white count of 8.1, down from 13 on admission, hemoglobin 12, and platelets 254. Sodium 143, potassium 3.4, chloride 103, CO2 30, BUN 19, creatinine 1.1, glucose 93, and calcium __. Blood cultures x2 remain negative. ASSESSMENT: 1. Bilateral lung infiltrates and leukocytosis consistent with pneumonia improved now with no fever and leukocytosis has resolved. 2. Lung infiltrates, rule out concomitant fibrotic changes to the lungs. 3. Delirium. Overall improved. 4. Parkinson disease with moderate Parkinson's dementia. 5. Hypertension. 6. Hypercholesterolemia. 7. Chronic venous insufficiency. 8. Coronary artery disease. 9. Gastroesophageal reflux disease. 10. Benign prostatic hypertrophy. 11. Presbycusis with hearing aids. PLAN: Continue IV Levaquin. Change low-dose Lasix to oral and add low-dose potassium supplementation. Continue DuoNeb's. He is on prophylactic Lovenox. Physical Therapy continues to work with the patient. We will continue Seroquel at night to help him rest, and he has Haldol ordered as needed for agitation. Continue his home medications for his blood pressure. We will add hydralazine as well. His blood pressure is rising slightly. Plan for discharge to rehab on Thursday, 04/18 if he does well. cc: Roni Otto MD MTDD
[2019-04-15] MEDS: KLOR-CON PO SCH (09:20)
[2019-04-15] MEDS ORDERED: MIRALAX PO ONE (16:55)
[2019-04-15] MEDS: LEVAQUIN 500 MG/D5W 500 MG/100 ML IVPB IV SCH (17:00)
[2019-04-15] MEDS: VANCOMYCIN 1.3 GM in NS 250 ML IV SCH (21:02)
[2019-04-15] MEDS: TOPROL XL PO SCH (21:03)
[2019-04-15] MEDS: SEROQUEL PO SCH (21:03)
[2019-04-15] MEDS: LOVENOX SUBQ SCH (21:03)
[2019-04-16] MEDS: DUONEB (A & A) INH SCH ×6 (04:02→23:05)
[2019-04-16] MEDS: PREVACID SOLUTAB PO SCH (06:02)
[2019-04-16] MEDS: SYNTHROID PO SCH (06:02)
[2019-04-16] MEDS: NORVASC PO SCH (09:47)
[2019-04-16] MEDS: EXELON 13.3MG/24HRS TD SCH (09:47)
[2019-04-16] MEDS: MIRALAX PO SCH (09:47)
[2019-04-16] MEDS: LASIX PO SCH (09:48)
[2019-04-16] MEDS: NAMENDA PO SCH ×2 (09:48→20:28)
[2019-04-16] MEDS: KLOR-CON PO SCH (09:48)
[2019-04-16] MEDS: MOBIC PO SCH (09:48)
[2019-04-16] MEDS: APRESOLINE PO SCH ×3 (09:48→18:32)
[2019-04-16] MEDS: ZOLOFT PO SCH (09:48)
[2019-04-16] MEDS: ASPIRIN PO SCH (09:48)
[2019-04-16] MEDS: SINEMET 25/100 PO SCH ×4 (09:48→20:29)
[2019-04-16] MEDS: LIPITOR PO SCH (09:49)
--- NOTE | 2019-04-16 16:52 | PROGRESS NOTE ---
DATE: 04/16/2019 SUBJECTIVE: An 83-year-old, pleasant, white male, was admitted to the hospital with pneumonia, Parkinson disease with underlying dementia. Covering for Dr. Otto. He was very pleasantly confused. is at bedside who had been for 60 years. 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 's complained of low blood pressure. The rest of review of systems none reported. PAST MEDICAL HISTORY: Reviewed. PAST SURGICAL HISTORY: Reviewed. MEDICATIONS: Reviewed. ALLERGIES: Not known. PHYSICAL EXAMINATION: Vital Signs: Temperature is 97.5, pulse is 74, blood pressure is stable 119/67. General: Very tall person, pleasantly confused. HEENT Exam: Mild ectropion noted. Neck: Supple. Chest: Bilateral air entry. Heart: Sounds are regular. Abdomen: Belly is soft, nontender. Extremities: No peripheral edema. No obvious deficits. INVESTIGATIONS: Yesterday CBC: White cell count 8.1, hematocrit 36, platelets 254. SMA-7: Sodium 143, potassium 3.4, chloride 103, BUN 19, creatinine 1.1. Blood cultures negative on 04/12/2019. Chest x-ray on 04/15/2019, pretty much stable. Chest CT interstitial fibrosis. ASSESSMENT AND PLAN: Dementia worsening with delirium from infection and currently on IV Levaquin, is improving. 1. Parkinson disease on Sinemet 4 tablets daily. 2. Deep venous thrombosis prophylaxis with Lovenox. 3. Gastrointestinal prophylaxis with Prevacid. 4. Hypothyroidism. Synthroid. 5. Dementia. Namenda 10 p.o. b.i.d. Exelon patch also 1 daily for dementia. 6. Underlying depression. Zoloft 75 daily. 7. Agitation. Seroquel 50 at bedtime. 8. Hypertension. Norvasc 5 mg daily, metoprolol 50 daily. 9. Hyperlipidemia on Lipitor 10. Pneumonia. IV vancomycin and Levaquin. At this time, blood pressure is pretty stable. Explained to the and at some point, also they can get dysautonomia. We will continue to monitor. Since he is doing very well, we will discontinue vancomycin. DISPOSITION: Planning to go for rehab placement on Thursday. Continue present treatment. LEVEL OF DOCUMENTATION: 35 minutes. cc: MD Roni Sylvester MD [facility]
[2019-04-16] MEDS: LEVAQUIN 500 MG/D5W 500 MG/100 ML IVPB IV SCH (18:32)
[2019-04-16] MEDS: SEROQUEL PO SCH (18:33)
[2019-04-16] MEDS: TOPROL XL PO SCH (20:29)
[2019-04-16] MEDS: LOVENOX SUBQ SCH (20:30)
[2019-04-17] MEDS: SEROQUEL PO SCH ×2 (01:49→18:03)
[2019-04-17] MEDS: DUONEB (A & A) INH SCH ×6 (05:04→23:45)
[2019-04-17] MEDS: SYNTHROID PO SCH (06:16)
[2019-04-17] MEDS: ZOLOFT PO SCH (09:15)
[2019-04-17] MEDS: MIRALAX PO SCH (09:15)
[2019-04-17] MEDS: NAMENDA PO SCH ×2 (09:15→20:50)
[2019-04-17] MEDS: PREVACID SOLUTAB PO SCH (09:15)
[2019-04-17] MEDS: KLOR-CON PO SCH (09:16)
[2019-04-17] MEDS: EXELON 13.3MG/24HRS TD SCH (09:16)
[2019-04-17] MEDS: ASPIRIN PO SCH (09:16)
[2019-04-17] MEDS: LASIX PO SCH (09:16)
[2019-04-17] MEDS: APRESOLINE PO SCH ×3 (09:16→17:54)
[2019-04-17] MEDS: MOBIC PO SCH (09:17)
[2019-04-17] MEDS: SINEMET 25/100 PO SCH ×4 (09:17→20:49)
[2019-04-17] MEDS: LIPITOR PO SCH (09:17)
[2019-04-17] MEDS: NORVASC PO SCH (09:17)
--- NOTE | 2019-04-17 17:20 | PROGRESS NOTE ---
DATE: 04/17/2019 SUBJECTIVE: The patient is extremely doing very well obviously. One of his sons has been assisting for ambulation around the floor. He is walking with a walker, slightly shuffling. He is not orthostatic. Blood pressure is stable. REVIEW OF SYSTEMS: None reported. OBJECTIVE: Temperature is 98 degrees, pulse 73, blood pressure is stable.HEENT: Exam had ectropion noted on the left eyelid. Chest has bilateral air entry. Heart sounds are regular. Belly is soft, nontender. Vitals are stable. ASSESSMENT AND PLAN: 1. Parkinson disease, stable on Sinemet 4 tablets daily. 2. Hypothyroidism, on Synthroid. 3. Dementia, stable. 4. Agitation. Seroquel 50 at bedtime. 5. Hypertension is excellent on present dose of Norvasc and metoprolol and hydralazine 25 t.i.d. 6. Possible pneumonia, improving on Levaquin and discontinue the IV vancomycin. 7. Deep vein thrombosis and gastrointestinal prophylaxes. 8. Depression. On Zoloft. Currently stable and waiting for rehabilitation on Thursday. Continue present treatment. LEVEL OF DOCUMENTATION: 25 minutes. cc: MD Roni Sylvester MD
[2019-04-17] MEDS: LEVAQUIN 500 MG/D5W 500 MG/100 ML IVPB IV SCH (17:54)
[2019-04-17] MEDS: TOPROL XL PO SCH (20:49)
[2019-04-17] MEDS: LOVENOX SUBQ SCH (20:49)
[2019-04-18] MEDS: HALDOL IV PRN (01:39)
[2019-04-18] MEDS: DUONEB (A & A) INH SCH ×3 (05:10→11:15)
[2019-04-18] MEDS: PREVACID SOLUTAB PO SCH (06:48)
[2019-04-18] MEDS: SYNTHROID PO SCH (06:49)
[2019-04-18] MEDS: ASPIRIN PO SCH (09:53)
[2019-04-18] MEDS: KLOR-CON PO SCH (09:53)
[2019-04-18] MEDS: EXELON 13.3MG/24HRS TD SCH (09:53)
[2019-04-18] MEDS: MOBIC PO SCH (09:54)
[2019-04-18] MEDS: ZOLOFT PO SCH (09:54)
[2019-04-18] MEDS: SINEMET 25/100 PO SCH (09:54)
[2019-04-18] MEDS: LASIX PO SCH (09:54)
[2019-04-18] MEDS: MIRALAX PO SCH (09:55)
[2019-04-18] MEDS: LIPITOR PO SCH (09:55)
[2019-04-18] MEDS: APRESOLINE PO SCH (09:56)
[2019-04-18] MEDS: NAMENDA PO SCH (09:56)
[2019-04-18] MEDS: NORVASC PO SCH (09:56)
[2019-04-18 11:22] VITALS: BP 142/52
--- NOTE | 2019-04-20 16:38 | PROGRESS NOTE ---
DATE: 04/18/2019 SUBJECTIVE: Patient was seen earlier this morning. He was doing well overall. He is back to baseline on his mentation. His family has decided they do not want to go to rehabilitation, but instead want to carry him home with sitters that they have arranged already. OBJECTIVE: Afebrile, pulse 63, respirations 16, blood pressure 164/58, O2 saturation on room air 96% to 100%. Cardiovascular: RRR. Lungs: Fairly clear. The patient has been ambulatory and in the halls, doing very well in that regard. Abdomen: Nontender. Extremities: No edema, calf tenderness, or cords. Neurologic: Nonfocal. Moves all extremities well. Moderate confusion baseline noted. ASSESSMENT: 1. Bilateral lung infiltrates, thought secondary to pneumonia. 2. Delirium, resolved. 3. Parkinson disease with moderate Parkinson dementia. Patient now back to baseline. 4. Hypertension. 5. Hypercholesterolemia. 6. Chronic venous insufficiency. 7. Coronary artery disease. 8. Gastroesophageal reflux disease. 9. Benign prostatic hypertrophy. 10. Presbycusis with hearing aids. PLAN: Discharge patient home on additional Levaquin and on low-dose Lasix and potassium. We will stop DuoNeb. Continue Seroquel at night 25 mg 1 to 2 at bedtime. Family concerned about his blood pressure getting low on the hydralazine, so we will stop that. He will follow up with me in 2 to 3 weeks. Repeat chest x-ray at that time. cc: Roni Otto MD
--- NOTE | 2019-05-08 22:24 | DISCHARGE SUMMARY ---
ADMISSION DATE: 04/12/2019 DISCHARGE DATE: 04/18/2019 DIAGNOSES: 1. Bilateral lung infiltrates thought secondary to pneumonia. 2. Delirium secondary to #1 and 3 resolved. 3. Parkinson disease with moderate Parkinson dementia now back to baseline. 4. Hypertension. 5. Hypercholesterolemia. 6. Chronic venous insufficiency. 7. Coronary artery disease. 8. Gastroesophageal reflux disease. 9. Benign prostatic hypertrophy. 10. Presbycusis and hearing aids. PROCEDURES: 1. Chest x-ray done 04/[address] scan of chest recommended . 2. CT chest done 04/13 revealed interstitial fibrosis, possibility of superimposed pulmonary edema or pneumonia particularly in view of the bilateral small pleural effusions cannot be excluded. 3. Chest x-ray done 04/15 reveal mild increased interstitial markings in the lower left lung in both upper lungs, no pleural effusions. REASON FOR ADMISSION AND HOSPITAL COURSE: The patient is an 83-year-old white male who suffers from Parkinson disease and Parkinson dementia and is followed by Dr. Black, his neurologist. He began to run a low-grade fever night prior to admission and had mild cough and developed some worsening confusion could not get out of bed. could not handle him home. The patient with the mental status change was admitted to the hospital. Blood cultures x2 were obtained and were negative. White count was elevated at 13,000. Chest x-ray reveals interstitial peripheral opacities consistent with pulmonary fibrosis. These had worsened since March 03 and seemed to fit the pattern more for developing pneumonia. The patient was given some Haldol for agitation and GI soft diet and the patient was placed on Levaquin and vancomycin. Blood cultures x2 remained negative during hospitalization. Urinalysis was normal. White count declined on 04/12 it was 13.6 and declined to 8.1 by 04/15/2019 and his mentation began to clear and his lungs began to sound better. BMP was largely unremarkable, calcium 9.1, creatinine of 1.1. Physical therapy worked vigorously with the patient and by 04/18 patient was doing much better. He is back to his baseline mentation. He desired not to go to rehab but instead go home with sitters that the family had arranged and the patient was discharged on the following medications, Sinemet 25/100 one p.o. q.i.d., Synthroid 25 mcg p.o. daily, Toprol-XL 50 mg p.o. at bedtime, Exelon patch 13.3 mg to skin daily, Caduet 5/10 1 p.o. daily, Namenda 10 mg p.o. b.i.d., nitroglycerin sublingual 0.4 mg every 5 minutes x3 p.r.n. chest pain, aspirin 81 mg p.o. daily, Mobic 7.5 mg p.o. daily, Prevacid SoluTab 30 mg p.o. daily, Zoloft 75 mg p.o. q.a.m., Seroquel 25 mg p.o. at bedtime, Klor- Con 10 mEq p.o. daily, MiraLAX 17 g in 8 ounces of water every other day, Tylenol p.r.n., Levaquin 500 mg p.o. daily for 9 additional days, Lasix 20 mg p.o. q.a.m. cc: Roni Otto MD
== END 2019-04-18 11:57 | disposition home or self-care (01) | DRG 194 ==
LOC: LAB 10:17 → 4N 13:08
PROVIDERS: ADMIT Family Medicine; ATTEND Family Medicine
CPT/HCPCS: 36415; 71020; 71046; 71250; 80048; 80202; 81001; 85025; 87040; 94640; 94761; 97162; 97530; A9270; J1630; J1650; J1940; J1956; J3370; J7040; J7050